=== PATIENT | male | born 1960 | race Caucasian/White ===

== ENCOUNTER 2019-09-17 05:24 | Day surgery (SDC) | payer OTHER ==
[~2019-09-17 05:24] MED LIST: CLONAZEPAM0.25 MG; DESCOVY 200-251 EACH; EFFEXOR XR150 MG; KALETRA 100-251 EACH
[2019-09-17] MEDS ORDERED: MIRALAX17 GM PO (09:26)
[2019-09-17] MEDS ORDERED: NEURONTIN300 MG PO (09:26)
[2019-09-17] MEDS ORDERED: ULTRAM50 MG PO (09:26)
[2019-09-17] MEDS ORDERED: TYLENOL ARTHRI650 MG PO (09:26)
[2019-09-17] MEDS ORDERED: ZOFRAN4 MG PO (09:26)
== END 2019-09-17 15:35 | disposition home or self-care (01) ==
LOC: CIR.AMB 05:24
DX: K40.90 Unilateral inguinal hernia, without obstruction or gangrene, not specified as recurrent (principal); K42.9 Umbilical hernia without obstruction or gangrene; D17.6 Benign lipomatous neoplasm of spermatic cord